=== PATIENT | female | born 1975 | race Caucasian/White ===

== ENCOUNTER → 2020-03-19 | Outpatient (CLI) | payer OTHER | END | disposition home or self-care (01) | LOC: LABWHC1 15:49 | PROVIDERS: ATTEND Family Medicine | DX: Z20.828 Contact with and (suspected) exposure to other viral communicable diseases (principal) | CPT/HCPCS: U0003; C9803 ==

== ENCOUNTER → 2021-10-15 | Outpatient (CLI) | payer OTHER ==
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
== END | disposition home or self-care (01) ==
LOC: RADXRMAIN 14:33
PROVIDERS: ATTEND Emergency Medicine
DX: S50.12XA Contusion of left forearm, initial encounter (principal)

== ENCOUNTER 2023-04-17 16:47 | Emergency (ER) | payer OTHER ==
[2023-04-17 17:32] VITALS: RESP 16; TEMP 98.2
--- NOTE | 2023-04-17 17:44 | ED ---
Extremity Problem HPI - General Source: patient, RN notes reviewed Mode of arrival: ambulatory Limitations: no limitations - History of Present Illness MD Complaint: extremity pain <Obdulia Lantigua - Last Filed: 04/17/23 17:42> <Helen Siegel - Last Filed: 04/18/23 03:01> - General Chief complaint: Extremity Problem,Nontraumatic Stated complaint: possible blood clot right calf Time Seen by Provider: 04/17/23 17:42 - History of Present Illness Initial comments: This is a 47 year old female who presents to the emergency department for pain in the right calf. Denies any injuries. She went to urgent care and was advised to come here for an US to rule out a DVT. Denies any hx of blood clots, chest pain, or shortness of breath. (Obdulia Lantigua) Note reviewed: This is a 47-year-old female who presents to the emergency department with a chief complaint of right calf pain. Patient was referred to the emergency department from urgent care for further evaluation. She reports right calf pain that has been ongoing for the last 5 days. She denies any injury or trauma. She does report having a history of blood clot 12 years ago. She does report tobacco product use. Denies any fever, chills, chest pain or shortness of breath. (Helen Siegel) - Related Data Previous Rx's Medication Instructions Recorded Apixaban [Eliquis] 0 mg PO DIRECTED 15 Days #74 04/17/23 tablet Allergies Allergy/AdvReac Type Severity Reaction Status Date / Time garlic Allergy Unknown Verified 04/17/23 17:14 Review of Systems ROS Other: All systems not noted in ROS Statement are negative. <Obdulia Lantigua - Last Filed: 04/17/23 17:42> ROS Other: All systems not noted in ROS Statement are negative. <Helen Siegel - Last Filed: 04/18/23 03:01> ROS Statement: Those systems with pertinent positive or pertinent negative responses have been documented in the HPI. Past Medical History Past Medical History: No Reported History History of Any Multi-Drug Resistant Organisms: None Reported Past Surgical History: Appendectomy, Section Past Psychological History: No Psychological Hx Reported Smoking Status: Never smoker Past Alcohol Use History: Occasional Past Drug Use History: None Reported <Obdulia Lantigua - Last Filed: 04/17/23 17:42> General Exam Limitations: no limitations <Obdulia Lantigua - Last Filed: 04/17/23 17:42> <Helen Siegel - Last Filed: 04/18/23 03:01> - General Exam Comments Initial Comments: Visual Physical Exam Vital signs reviewed General: Well-appearing, nontoxic, no acute distress. Head: Normocephalic, atraumatic Eyes: PERRLA, EOMI ENT: Airway patent Chest: Nonlabored breathing Skin: No visual rash, normal skin tone Neuro: Alert and oriented 3 Musculoskeletal: No gross abnormalities (Obdulia Lantigua) General: Alert, in no acute distress Head: atraumatic normocephalic. Eyes PERRL, EOMI intact, mucous membranes moist Respiratory: Lungs clear to auscultation bilaterally Cardiovascular: Regular rate and rhythm Abdominal: Soft without guarding or rebound Extremities: Normal inspection with full range of motion and normal capillary refill, Right calf with Homans sign positive. No marked erythema, edema. 2+ DT/PT pulses. Neuroogic: alert and oriented 3, CN II-XII intact, able to ambulate with steady gait Skin: warm dry and intact with normal color (Helen Siegel) Course Vital Signs 04/17/23 04/17/23 17:11 20:06 Temperature 98.2 F Pulse Rate 74 72 Respiratory 16 16 Rate Blood Pressure 149/90 127/86 O2 Sat by Pulse 99 98 Oximetry Medical Decision Making <Obdulia Lantigua - Last Filed: 04/17/23 17:42> <Helen Siegel - Last Filed: 04/18/23 03:01> - Medical Decision Making I performed the QuickNote portion of this chart. Signed Obdulia Lantigua PA-C. (Obdulia Lantigua) Was pt. sent in by a medical professional or institution ([facility], DEVELOPMENT ASSISTANT, urgent care, hospital, or usp...) When possible be specific @ -[No] Did you speak to anyone other than the patient for history (EMS, parent, family, police, friend...)? What history was obtained from this source @ -[No] Did you review nursing and triage notes (agree or disagree)? Why? @ -[I reviewed and agree with nursing and triage notes] Were old charts reviewed (outside hosp., previous admission, EMS record, old EKG, old radiological studies, urgent care reports/EKG's, usp records)? Report findings @ -[No old charts were reviewed] Differential Diagnosis (chest pain, altered mental status, abdominal pain women, abdominal pain men, vaginal bleeding, weakness, fever, dyspnea, syncope, headache, dizziness, GI bleed, back pain, seizure, CVA, palpatations, mental health, musculoskeletal)? @ -[not applicable] EKG interpreted by me (3pts min.). @ -[As above] X-rays interpreted by me (1pt min.). @ -[None done] CT interpreted by me (1pt min.). @ -[None done] U/S interpreted by me (1pt. min.). @ -Ultrasound of right lower extremity reveals positive DVT What testing was considered but not performed or refused? (CT, X-rays, U/S, labs)? Why? @ -[None] What meds were considered but not given or refused? Why? @ -[None] Did you discuss the management of the patient with other professionals (professionals i.e. , PA, DEVELOPMENT ASSISTANT, lab, RT, psych nurse, social science analyst, administrative support coordinator, teacher, state highway police officer, director of casework services)? Give summary @ -[No] Was smoking cessation discussed for >3mins.? @ -[No] Was critical care preformed (if so, how long)? @ -[No] Were there social determinants of health that impacted care today? How? (Homelessness, low income, unemployed, alcoholism, drug addiction, trans portation, low edu. Level, literacy, decrease access to med. care, skilled nursing, rehab)? @ -[No] Was there de-escalation of care discussed even if they declined (Discuss DNR or withdrawal of care, Hospice)? DNR status @ -[No] What co-morbidities impacted this encounter? (DM, HTN, Smoking, COPD, CAD, Cancer, CVA, ARF, Chemo, Hep., AIDS, mental health diagnosis, sleep apnea, morbid obesity)? @ -[None] Was patient admitted / discharged? Hospital course, mention meds given and route, prescriptions, significant lab abnormalities, going to OR and other pertinent info. @ -Charts. This is a pleasant 47-year-old female who presents the emergency department with right lower leg. Patient is a thorough history and physical exam performed. A lower extremity without marked erythema, edema. Homans sign is positive. Patient's ultrasound reveals positive DVT. Patient will be placed on Eliquis. Recommend close follow-up with PCP and Dr. Ramirez, vascular surgeon. Return precautions discussed at length. Discharged in stable condition. Case is discussed with Dr. Go, ED attending who agrees with plan of care Undiagnosed new problem with uncertain prognosis? @ -[No] Drug Therapy requiring intensive monitoring for toxicity (Heparin, Nitro, Insulin, Cardizem)? @ -[No] Were any procedures done? @ -[No] Diagnosis/symptom? @ -Right Leg DVT Acute, or Chronic, or Acute on Chronic? @ -Acute Uncomplicated (without systemic symptoms) or Complicated (systemic symptoms)? @ -Uncomplicated Side effects of treatment? @ -[No] Exacerbation, Progression, or Severe Exacerbation? @ -[No] Poses a threat to life or bodily function? How? (Chest pain, [place], [place], pneumonia, PE, COPD, DKA, ARF, appy, cholecystitis, CVA, Diverticulitis, Homicidal, Osorio icidal, threat to staff... and all critical care pts) @ -Low likelihood (Helen Siegel) Disposition <Obdulia Lantigua - Last Filed: 04/17/23 17:42> Is patient prescribed a controlled substance at d/c from ED?: No Time of Disposition: 19:53 <Helen Siegel - Last Filed: 04/18/23 03:01> Clinical Impression: Deep vein thrombosis (DVT) of lower extremity Disposition: HOME SELF-CARE Condition: Stable Additional Instructions: Please take anticoagulation twice daily for 7 days then 5mg twice a day going forward Please follow up with vascular surgery in 1-2 days Please return to the nearest emergency department if worsening leg swelling, pain, or shortness of breath develop Prescriptions: Apixaban [Eliquis] 0 mg PO DIRECTED 15 Days #74 tablet Referrals: Neto Rivera MD [Primary Care Provider] - 1-2 days Emma Ramirez DO [STAFF PHYSICIAN] - 1-2 days
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
[2023-04-17] MEDS ORDERED: APIXABAN 5 MG TAB PO ONE (20:00)
[2023-04-17 20:11] VITALS: BP 127/86; PULSE 72
[2023-04-17] MEDS ORDERED: APIXABAN 5 MG TAB PO SCH (21:00)
== END 2023-04-17 20:12 | disposition home or self-care (01) ==
LOC: EC 16:47
DX: I82.402 Acute embolism and thrombosis of unspecified deep veins of left lower extremity (principal); Z91.018 Allergy to other foods
CPT/HCPCS: 99283